=== PATIENT | male | born 1930 | race Caucasian/White ===

== ENCOUNTER → 2016-05-08 | Outpatient (CLI) | payer OTHER ==
[2015-04-07 15:00] VITALS: BP 142/86
[~2016-05-08] MED LIST: ALPR0.5T6 PO; CONTRAST GIVEN MC PRN; FURO40TA4 PO; IOHEXOL 300 MG/ML 75 ML VIAL IV ONE; LISI10TA2 PO; PANT40TA3 PO; POTA20TA4 PO; TAMS0.4C97 PO; WARF6TAB PO
--- NOTE | 2016-05-08 15:44 | RAD ---
EXAM: CT OF THE CHEST WITH INTRAVENOUS CONTRAST. HISTORY: Lung mass, history of colon cancer. TECHNIQUE: Computed tomography of the chest was performed after the intravenous administration of 75 mL Omnipaque 300. COMPARISON: 04/16/2016. FINDINGS: Images of the upper abdomen reveal an infrarenal abdominal aortic aneurysm, partially visualized, measuring 4.3 cm. The distal thoracic aorta is ectatic at 3.8 cm. The ascending aorta is not dilated at 3.5 cm. There are moderate atherosclerotic calcifications. Bone windows reveal no suspicious lesions. There are no pathologically enlarged mediastinal or axillary lymph nodes. There is no pleural or pericardial effusion. The heart is moderately enlarged with a right-sided predominant. There are atherosclerotic calcifications of the coronary arteries. There is a spiculated nodule in the left lower lobe medially measures 14 x 12 mm. This has increased in size from 1 cm over the short interval. There is a groundglass density nodule measures approximately 1 cm in the right lower lobe on image 53. This may be scarring. Another scarlike nodule laterally in the left lower lobe on image 62 measures 8 mm. These are stable. There is a region of scarring or atelectasis along the left major fissure. There is severe centrilobular emphysema. IMPRESSION: 1. 14 mm spiculated nodule medially in the left lower lobe, increased from 10 mm in the short interval. This is consistent with primary bronchogenic carcinoma. Ongoing management is recommended. 2. Another 8 mm nodule in the left lower lobe and a groundglass density nodule in the right lower lobe are stable and may be post inflammatory. Another follow-up is recommended in 3 months. 3. Severe centrilobular emphysema. 4. Moderate cardiomegaly in a right-sided pattern. 5. 3.8 cm descending thoracic aortic aneurysm. 4.3 cm abdominal aortic aneurysm, status post repair, partially visualized. *One or more of the following individualized dose reduction techniques were utilized for this examination: 1. Automated exposure control. 2. Adjustment of the mA and/or kV according to patient size. 3. Use of iterative reconstruction technique.
== END | disposition home or self-care (01) ==
LOC: CT 15:19
PROVIDERS: ATTEND Family Medicine
DX: R91.8 Other nonspecific abnormal finding of lung field (principal); J43.2 Centrilobular emphysema; I51.7 Cardiomegaly; I71.2 Thoracic aortic aneurysm, without rupture; I71.4 Abdominal aortic aneurysm, without rupture
CPT/HCPCS: 71260; Q9967

== ENCOUNTER → 2016-10-16 | Outpatient (CLI) | payer OTHER ==
[2015-04-07 15:00] VITALS: BP 142/86
[~2016-10-16] MED LIST changes: -CONTRAST GIVEN MC PRN; -WARF6TAB PO; +WARF6TAB49 PO
--- NOTE | 2016-10-16 12:38 | RAD ---
CT of the chest without contrast, 10/16/2016: History: Follow-up left lung nodule Noncontrast scans were obtained and compared to a study from 05/08/2016 as well as an exam from 04/16/2016. There are extensive emphysematous changes in the lungs. There are scattered parenchymal scars. There are several tiny calcifications, probably of granulomatous origin. The 14 mm spiculated nodule seen in the left lower lobe on the previous study has increased considerably in size, now measuring 2.4 cm. Spicules now extend to the pleura medially. A primary lung malignancy is likely. A small nodule seen in the left lateral costophrenic angle on the previous study is no longer visible. Streaky parenchymal opacities in the posterior aspect of the left upper lobe adjacent to the oblique fissure appear unchanged since 04/16/2016. This may represent scarring. There is a 7 mm spiculated nodule in the left upper lobe as seen on image 101 of series #3. It measured 5.5 mm on the 04/16/2016 study. The minimal groundglass opacity in the lateral aspect of the right lower lobe as seen on image 247 of series #3 appears to be unchanged. There is moderate calcific plaquing of the thoracic aorta and its branches. Moderate scattered coronary artery calcifications are present. There is mild unchanged dilatation of the lower descending thoracic aorta. No mediastinal adenopathy is seen. There is no evidence of pleural fluid. IMPRESSION: 1. Severe pulmonary emphysema with numerous scattered parenchymal scars. 2. Enlarging left lower lobe mass compatible with a primary lung malignancy. 3. Small left upper lobe pulmonary nodule which has increased slightly in size raising the possibility of an additional malignancy. 4. Several other unchanged parenchymal opacities as described above. 5. Calcific plaquing of the aorta and coronary arteries. PQRS Compliance Statement: One or more of the following individualized dose reduction techniques were utilized for this examination: 1. Automated exposure control 2. Adjustment of the mA and/or kV according to patient size 3. Use of iterative reconstruction technique
== END | disposition home or self-care (01) ==
LOC: CT 15:12
PROVIDERS: ATTEND Internal Medicine Hematology & Oncology
DX: J43.9 Emphysema, unspecified (principal); I25.10 Atherosclerotic heart disease of native coronary artery without angina pectoris; R91.1 Solitary pulmonary nodule
CPT/HCPCS: 71250